=== PATIENT | male | born 1995 | race Caucasian/White ===

== ENCOUNTER 2018-11-27 09:11 | Emergency (ER) | payer OTHER ==
[2018-11-27] MEDS ORDERED: MAG HYDROX/AL HYDROX/SIMETH SUSP 30 ML UDCUP PO ONE (09:38)
[2018-11-27] MEDS ORDERED: LIDOCAINE 2% VISCOUS SOLN 20 ML UDCUP PO ONE (09:38)
[2018-11-27] MEDS ORDERED: METOCLOPRAMIDE HCL ORAL SOLN 10 MG/10 ML UDCUP PO ONE (09:38)
--- NOTE | 2018-11-27 09:40 | ER Document Report ---
ED Medical Screen (RME) - General Chief Complaint: Chest Pain Stated Complaint: CHEST PAIN Time Seen by Provider: 11/27/18 09:38 - HPI Notes: 11/27/18 09:39 Patient is a 23-year-old male with a history of asthma who presents complaining of pain to his epigastrium that radiates up into the upper mid chest that began 3 days ago and has been intermittent. He has felt sob with this, but none currently. Patient states the pain is sharp and did bring him to his knees on one occasion. Patient states that he did feel little "phlegm/spit up in his throat" once as well. Denies drug allergies. Denies any prolonged immobilization, distance travel, recent surgery/trauma, personal cancer history, hormone use, smoking, or previous DVT/PE. Denies WALSH, fever, neck pain, URI, n/v/d, dysuria, back pain, or rash. I have treated and performed a rapid initial assessment of this patient. A comprehensive ED assessment and evaluation of the patient, analysis of test results and completion of medical decision making process will be conducted by additional ED providers. PHYSICAL EXAMINATION: GENERAL: Well-appearing, well-nourished and in no acute distress. A&Ox4. Answers questions appropriately. LUNGS: Breath sounds clear to auscultation bilaterally and equal. No wheezes rales or rhonchi. HEART: Regular rate and rhythm without murmurs, rubs, gallops. ABDOMEN: Soft, nondistended abdomen. No guarding, no rebound. Normal bowel sounds present. No CVA tenderness bilaterally. + mild epigastric tenderness (cannot elicit thorough abd exam w/o bed, however). Extremities: No cyanosis, clubbing, or edema b/l. Amber negative bilaterally. No lower extremity asymmetry. NEUROLOGICAL: Normal speech, normal gait. PSYCH: Normal mood, normal affect. - Related Data Allergies/Adverse Reactions: No Known Allergies Allergy (Verified 11/27/18 09:13) Physical Exam - Vital signs Vitals: Temp Pulse Resp BP Pulse Ox 97.4 F 59 L 16 139/71 H 99 11/27/18 09:20 11/27/18 09:20 11/27/18 09:20 11/27/18 09:20 11/27/18 09:20 Course - Vital Signs Vital signs: Temp Pulse Resp BP Pulse Ox 97.4 F 59 L 16 139/71 H 99 11/27/18 09:20 11/27/18 09:20 11/27/18 09:20 11/27/18 09:20 11/27/18 09:20
[2018-11-27 10:27] LABS: ABSOLUTE BASOPHILS # (AUTO) 0.1 10^3/uL (0.0-0.2); ABSOLUTE EOSINOPHILS # (AUTO) 0.1 10^3/uL (0.0-0.6); ABSOLUTE LYMPHOCYTES (AUTO) 1.5 10^3/uL (0.5-4.7); ABSOLUTE MONOCYTES (AUTO) 0.4 10^3/uL (0.1-1.4); BASOPHILS % (AUTO) 0.9 % (0-2); HEMATOCRIT 47.4 % (37.9-51.0); HEMOGLOBIN 15.7 g/dL (13.5-17.0); LYMPHOCYTES % (AUTO) 25.3 % (13-45); MEAN CORPUSCULAR HEMOGLOBIN 28.6 pg (27.0-33.4); MEAN CORPUSCULAR HGB CONC 33.2 g/dL (32.0-36.0); MEAN CORPUSCULAR VOLUME 86 fl (80-97); MONOCYTES % (AUTO) 6.4 % (3-13); PLATELET COUNT 217 10^3/uL (150-450); RED CELL DISTRIBUTION WIDTH 14.6 % (11.5-14.0); SEGMENTED NEUTROPHILS % (AUTO) 66.4 % (42-78); TOTAL CELLS COUNTED % (AUTO) 100 %; WHITE BLOOD COUNT 6.1 10^3/uL (4.0-10.5)
--- NOTE | 2018-11-27 10:35 | ER Document Report ---
ED GI/ - General Chief Complaint: Chest Pain Stated Complaint: CHEST PAIN Time Seen by Provider: 11/27/18 09:38 Primary Care Provider: SHAKIR,RITU [Primary Care Provider] - Follow up as needed Mode of Arrival: Ambulatory Information source: Patient, Outside Facility Records Notes: 23-year-old male patient comes emergency room complaining of lower substernal epigastric type chest discomfort that started 3 days ago. It occurs 6-8 times per day. It would last up to 20 minutes. It is a sharp pain. Reports it feels as if it starts in the epigastrium and radiates upward. Initially he would notice the pain would go away when he would eat, now eating does not seem to help, but it does not seem to make it worse. He has never had this problem in the past. His underlying medical history is significant only for asthma. There is no diaphoresis, shortness of breath, nausea or vomiting associated with the pain. 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 denies: CAD Patient has suicidal ideation: No Patient has homicidal ideation: No Pulmonary Medical History: Reports: Hx Asthma Surgical Hx: Negative Review of Systems - Review of Systems Constitutional: No symptoms reported EENT: No symptoms reported Cardiovascular: No symptoms reported Respiratory: No symptoms reported Gastrointestinal: No symptoms reported Genitourinary: No symptoms reported Musculoskeletal: No symptoms reported Skin: No symptoms reported Hematologic/Lymphatic: No symptoms reported Neurological/Psychological: No symptoms reported Physical Exam - Vital signs Vitals: Temp Pulse Resp BP Pulse Ox 97.4 F 59 L 16 139/71 H 99 11/27/18 09:20 11/27/18 09:20 11/27/18 09:20 11/27/18 09:20 11/27/18 09:20 - Notes Notes: PHYSICAL EXAMINATION: GENERAL: Well-appearing, well-nourished and in no acute distress. HEAD: Atraumatic, normocephalic. EYES: Pupils equal round and reactive to light, extraocular movements intact, sclera anicteric, conjunctiva are normal. ENT: nares patent, oropharynx clear without exudates. Moist mucous membranes. NECK: Normal range of motion, supple without lymphadenopathy LUNGS: Breath sounds clear to auscultation bilaterally and equal. No wheezes rales or rhonchi. HEART: Regular rate and rhythm without murmurs ABDOMEN: Soft, normoactive bowel sounds. Some reproducible right upper quadrant palpation tenderness. No epigastric tenderness, however the patient had received a GI cocktail prior to the examination. No guarding, no rebound. No masses appreciated. EXTREMITIES: Normal range of motion, no pitting or edema. No cyanosis. NEUROLOGICAL: Cranial nerves grossly intact. Normal speech, normal gait. Normal sensory, motor, and reflex exams. PSYCH: Normal mood, normal affect. SKIN: Warm, Dry, normal turgor, no rashes or lesions noted. Course - Vital Signs Vital signs: Temp Pulse Resp BP Pulse Ox 97.4 F 59 L 16 139/71 H 99 11/27/18 09:20 11/27/18 09:20 11/27/18 09:20 11/27/18 09:20 11/27/18 09:20 - Laboratory Result Diagrams: 11/27/18 10:12 11/27/18 10:12 Laboratory results interpreted by me: 11/27/18 11/27/18 10:12 10:12 RDW 14.6 H Carbon Dioxide 31 H - Diagnostic Test Radiology reviewed: Image reviewed - Chest x-ray is unremarkable. Gallbladder ultrasound shows sludge, no other abnormalities. - EKG Interpretation by Nh EKG shows normal: Sinus rhythm, [place], Intervals, QRS Complexes, ST-T Waves Rate: Normal - 60 Rhythm: NSR Discharge - Discharge Clinical Impression: Epigastric abdominal pain, Sludge in gallbladder Condition: Stable Disposition: HOME, SELF-CARE Additional Instructions: Gallbladder Disease Your evaluation shows evidence of gallbladder disease. The gallbladder is a pouch under the liver which stores bile. Stones, infection, or irritation of the gallbladder cause attacks of pain. Certain foods -- fats in particular -- may provoke attacks. The usual treatment for gallbladder disease is surgical removal of the gallbladder -- called a cholecystectomy. You will be referred to a physician qualified to advise you on the best treatment for your problem. Hospitalization is not necessary. Take clear liquids only until you are painfree. After that, you should stay on a low-fat diet, with frequent SMALL meals. Call the doctor or return at once if you develop severe pain, repeated vomiting, fever, or jaundice (a yellow color in the skin and whites of the eyes). Low-Fat Diet The physician has recommended a low-fat diet. This diet is often used for gallbladder or pancreas problems. Your meals should be high-carbohydrate (potato, apples, noodles, breads, vegetables). Eat fish or skinless chicken (boiled or baked rather than fried) for protein. Beans and peas are good sources of fat-free protein. Soups are usually very low-fat. Don't eat anything fried. Avoid red meats. Avoid most dairy products. Skim milk and non-fat yogurt are OK. Most popular cheeses are very high-fat. Don't add butter or sauces -- use lemon or pepper instead. If you like salads, use one of the new "non-fat" dressings. "Fast Food" is "fat food." There is virtually nothing from a typical fast- food restaurant that you can eat. Fish patties and chicken nuggets are almost always deep-fat fried. "Special Sauces" are mostly fat. * Your gallbladder ultrasound suggest that you have sludge in the gallbladder. This may be the cause of your discomfort. Eat a diet designed for gallbladder disease until you can follow-up with your primary care provider to schedule you for an HIDA scan. RETURN TO THE EMERGENCY ROOM IF ANY NEW OR WORSENING SYMPTOMS. Referrals: [facility] [Primary [facility] Provider] - Follow up as needed
[2018-11-27 10:53] LABS: ALANINE AMINOTRANSFERASE 44 U/L (21-72); ALBUMIN 4.6 g/dL (3.5-5.0); ALKALINE PHOSPHATASE 54 U/L (38-126); ANION GAP 8 (5-19); ASPARTATE AMINO TRANSFERASE 30 U/L (17-59); BILIRUBIN,DIRECT 0.2 mg/dL (0.0-0.4); BILIRUBIN,TOTAL 0.7 mg/dL (0.2-1.3); BLOOD UREA NITROGEN 16 mg/dL (7-20); CALCIUM 9.8 mg/dL (8.4-10.2); CARBON DIOXIDE 31 mmol/L (22-30); CHLORIDE 103 mmol/L (98-107); GLUCOSE 83 mg/dL (75-110); POTASSIUM 4.6 mmol/L (3.6-5.0); TOTAL PROTEIN 7.6 g/dL (6.3-8.2)
--- NOTE | 2018-11-27 11:03 | RADIOLOGY REPORT (SQ) ---
EXAM DESCRIPTION: CHEST 2 VIEWS COMPLETED DATE/TIME: 11/27/2018 10:27 am REASON FOR STUDY: epigastric/cp COMPARISON: None. EXAM PARAMETERS: NUMBER OF VIEWS: two views TECHNIQUE: Digital Frontal and Lateral radiographic views of the chest acquired. RADIATION DOSE: NA LIMITATIONS: none FINDINGS: LUNGS AND PLEURA: No opacities, masses or pneumothorax. No pleural effusion. MEDIASTINUM AND HILAR STRUCTURES: No masses or contour abnormalities. HEART AND VASCULAR STRUCTURES: Heart normal size. No evidence for failure. BONES: No acute findings. HARDWARE: None in the chest. OTHER: No other significant finding. IMPRESSION: NO ACUTE RADIOGRAPHIC FINDING IN THE CHEST. TECHNICAL DOCUMENTATION: JOB ID: [id number] [employer]- All Rights Reserved Reading location - IP/workstation name: [email or web address]
--- NOTE | 2018-11-27 12:30 | RADIOLOGY REPORT (SQ) ---
EXAM DESCRIPTION: U/S ABDOMEN LIMITED W/O DOP COMPLETED DATE/TIME: 11/27/2018 11:42 am REASON FOR STUDY: RUQ abd pain COMPARISON: None. TECHNIQUE: Dynamic and static grayscale images acquired of the abdomen and recorded on PACS. Rondao patricia selected color Doppler and spectral images recorded. LIMITATIONS: None. FINDINGS: PANCREAS: Obscured by bowel gas. LIVER: No masses. Echotexture normal. LIVER VASCULATURE: Normal directional flow of the main portal vein and hepatic veins. GALLBLADDER: No gallstones are seen. There is some sludge. ULTRASOUND-DETECTED DYER'S SIGN: Negative. INTRAHEPATIC DUCTS AND COMMON DUCT: CBD and intrahepatic ducts normal caliber. No filling defects. INFERIOR VENA CAVA: Normal flow. AORTA: No aneurysm. RIGHT KIDNEY: Normal size, 10.1 cm. Normal echogenicity. No solid or suspicious masses. No hydroneph rosis. No calcifications. PERITONEAL AND RIGHT PLEURAL SPACE: No ascites or effusions. OTHER: No other significant findings. IMPRESSION: There is a small amount of gallbladder sludge. No gallstones. No pericholecystic fluid . No wall thickening. TECHNICAL DOCUMENTATION: JOB ID: [id number] [employer]- All Rights Reserved Reading location - IP/workstation name: [email or web address]
[2018-11-27 13:45] VITALS: BP 125/58
--- NOTE | 2018-11-27 14:47 | EKG REPORT ---
SEVERITY:- NORMAL ECG - SINUS RHYTHM : Confirmed by: Faiza Bustamante MD 27-Nov-2018 14:46:08
== END 2018-11-27 13:53 | disposition home or self-care (01) ==
LOC: ER 09:11
DX: K82.8 Other specified diseases of gallbladder (principal); R10.13 Epigastric pain; R07.9 Chest pain, unspecified
CPT/HCPCS: 93005; 99285; 36415; 83690; 85025; 80053; 84484; 71046; 76705; 93010; J3490

== ENCOUNTER 2020-02-28 20:26 | Emergency (ER) | payer OTHER ==
--- NOTE | 2020-02-28 20:49 | ER Document Report ---
ED Medical Screen (RME) - General Chief Complaint: Chest Pain Stated Complaint: CHEST PAIN Time Seen by Provider: 02/28/20 20:34 Primary Care Provider: SHAKIR,RITU [Primary Care Provider] - Follow up as needed Mode of Arrival: Ambulatory Information source: Patient Notes: 24-year-old male presented to ED for chest pain this morning he states he went to work to see if it would get better but a couple hours ago it actually started getting worse. He is on medicine for anxiety. Denies any history of blood pressure cholesterol or any cardiac problems. States he has no history of reflux. He states he had pain when he woke up and then about 9:00 he was able to eat eggs and sausage during the pain. He states the only family member that has any cardiac problems is his grandfather he in his 60s from a [place] but he started having heart problems in his 50s. He states his pain level right now is a 2. Denies any shortness of breath. Patient states he drinks a couple times months but no cigarettes or drugs. I have greeted and performed a rapid initial assessment of this patient. A comprehensive ED assessment and evaluation of the patient, analysis of test results and completion of medical decision making process will be conducted by an additional ED providers. - HPI Onset: This morning Onset/Duration: Constant Quality of pain: Sharp Pain Level: 2 Associated Symptoms: Chest pain, Other - He states he did have some numbness at work in his left side of his neck for about 10 minutes but then it went away.. denies: Shortness of breath Exacerbated by: Other - Being bent over or laying on his side Relieved by: Denies Similar symptoms previously: No Recently seen / treated by doctor: No - Related Data Smoking: Non-smoker Frequency of alcohol use: Social Drug Abuse: None Allergies/Adverse Reactions: No Known Allergies Allergy (Verified 11/27/18 09:13) Past Medical History - Past Medical History Cardiac Medical History: Reports: None Pulmonary Medical History: Reports: Hx Asthma EENT Medical History: Reports: None Neurological Medical History: Reports: None Endocrine Medical History: Reports: None Renal/ Medical History: Reports: None Malignancy Medical History: Reports None GI Medical History: Reports: None Musculoskeltal Medical History: Reports Hx Musculoskeletal Trauma Skin Medical History: Reports None Psychiatric Medical History: Reports: Hx Anxiety Traumatic Medical History: Reports: Hx Fractures - Left wrist twice Infectious Medical History: Reports: None Surgical Hx: Negative Past Surgical History: Reports: None - Immunizations Immunizations up to date: Yes Hx Diphtheria, Pertussis, Tetanus Vaccination: Yes - 2018 Physical Exam - Vital signs Vitals: Temp Pulse Resp BP Pulse Ox 98.0 F 68 16 171/89 H 96 02/28/20 20:30 02/28/20 20:30 02/28/20 20:30 02/28/20 20:30 02/28/20 20:30 Course - Vital Signs Vital signs: Temp Pulse Resp BP Pulse Ox 98.0 F 68 16 171/89 H 96 02/28/20 20:30 02/28/20 20:30 02/28/20 20:30 02/28/20 20:30 02/28/20 20:30 Doctor's Discharge - Discharge [facility]errals: [facility] [[facility]] - Follow up as needed
--- NOTE | 2020-02-28 21:41 | RADIOLOGY REPORT (SQ) ---
EXAM DESCRIPTION: XR CHEST 2 VIEWS COMPLETED DATE/TME: 02/28/2020 20:52 CLINICAL HISTORY: 24 years, Male, chest pain COMPARISON: Chest x-ray 11/27/2018 TECHNIQUE: PA and lateral views FINDINGS: Cardiomediastinal silhouette is not enlarged. No suspicious lung pleural bone abnormalities. Stomach appears distended by what appears to be inspissated fluid. Similar finding was seen on 11/27/2018. IMPRESSION: 1. Negative chest x-ray. 2. Unusual inspissated contents of the stomach. Suggest clinical correlation if further evaluation is necessary.
--- NOTE | 2020-02-28 23:15 | ER Document Report ---
ED General - General Chief Complaint: Chest Pain Stated Complaint: CHEST PAIN Time Seen by Provider: 02/28/20 20:34 Primary Care Provider: LAURYN VOGT MD [ACTIVE STAFF] - Follow up in 1 week RYAN SANDERS MD [ACTIVE STAFF] - Follow up in 1 week [facility] [NO LOCAL MD] - Follow up in 1 week Mode of Arrival: Ambulatory Notes: 24-year-old male with mild intermittent asthma presents with approximately 1 day of constant chest discomfort. Patient says he feels in his left side of his lower chest without radiation or associated symptoms. Patient says he had previous pain that was similar many months ago and had outside work-up including gallbladder studies which were normal and pain resolved without any intervention. Pain is worse when patient moved over or onto his left side. Patient denies any exertional chest pain, cardiac history, hypertension, hyperlipidemia, diabetes, smoking, alcohol or drug abuse, pleuritic chest pain, lower extremity edema or pain, DVT/PE/hypercoagulability history in self or family, cancer history, cough, hemoptysis, recent travel/trauma/surgery/immobi lization, PICA, early satiety, unexplained weight loss - Related Data Allergies/Adverse Reactions: No Known Allergies Allergy (Verified 11/27/18 09:13) Home Medications: albuterol. "steroid for asthma". xanax-generic Past Medical History - General Information source: Patient - Social History Smoking Status: Never Smoker Frequency of alcohol use: Social Drug Abuse: None Family History: Reviewed & Not Pertinent. denies: CAD - Past Medical History Cardiac Medical History: Reports: None Pulmonary Medical History: Reports: Hx Asthma EENT Medical History: Reports: None Neurological Medical History: Reports: None Endocrine Medical History: Reports: None Renal/ Medical History: Reports: None. Denies: Hx Peritoneal Dialysis Malignancy Medical History: Reports None GI Medical History: Reports: None Musculoskeletal Medical History: Reports Hx Musculoskeletal Trauma Skin Medical History: Reports None Psychiatric Medical History: Reports: Hx Anxiety Traumatic Medical History: Reports: Hx Fractures - Left wrist twice Infectious Medical History: Reports: None Surgical Hx: Negative Past Surgical History: Reports: None - Immunizations Immunizations up to date: Yes Hx Diphtheria, Pertussis, Tetanus Vaccination: Yes - 2018 Review of Systems - Review of Systems Notes: REVIEW OF SYSTEMS: CONSTITUTIONAL : Denies fever, chills, or sweats. EENT: Denies recent cold/sinus symptoms, denies throat pain CARDIOVASCULAR: +chest pain, -[place] RESPIRATORY: Denies cough, denies shortness of breath. GASTROINTESTINAL: Denies abdominal pain, nausea/vomiting. GENITOURINARY: Denies difficulty urinating, painful urination. MUSCULOSKELETAL: Denies neck pain, back pain. SKIN: Denies rash or skin lesions. HEMATOLOGIC : Denies easy bruising or bleeding. LYMPHATIC: Denies swollen, enlarged glands. NEUROLOGICAL: Denies headache, denies change in gait. PSYCHIATRIC: Denies anxiety or stress or depression. Physical Exam - Vital signs Vitals: Temp Pulse Resp BP Pulse Ox 98.0 F 68 16 171/89 H 96 02/28/20 20:30 02/28/20 20:30 02/28/20 20:30 02/28/20 20:30 02/28/20 20:30 - Notes Notes: PHYSICAL EXAMINATION: GENERAL: Well-appearing, well-nourished and in no acute distress. HEAD: Atraumatic, normocephalic. EYES: Pupils equal round and appropriate constriction, sclera anicteric, conju nctiva are normal. ENT: nares patent, moist mucous membranes. NECK: Normal range of motion, supple without lymphadenopathy LUNGS: Breath sounds clear to auscultation bilaterally and equal. No wheezes rales or rhonchi. HEART: Regular rate and rhythm without murmurs ABDOMEN: Soft, nontender, no guarding, no masses, no CVAT EXTREMITIES: Normal range of motion, no pitting or edema. No cyanosis. NEUROLOGICAL: Awake, alert, conversing appropriately, moves all extremities spontaneously. PSYCH: Normal mood, normal affect. SKIN: Warm, Dry, normal turgor, no rashes or lesions noted. Course - Re-evaluation Re-evalutation: 02/28/20 23:52 24-year-old male presents with chest pain with symptoms atypical for ACS, will rule out with EKG and single troponin. Rule out inborn conduction disease, HCM, WPW, but very low pretest probability. Rule out pneumothorax with chest x-ray. PERC negative and low pretest probability. No risk factors for dissection, pericardial effusion, Boerhaave syndrome, and presentation not consistent with these diagnoses. EKG, troponin, chest x-ray, likely DC with PCP cardiology follow-up and return precautions. 02/29/20 05:04 Patient with inspissated stomach contents on x-ray which is also seen on previous chest x-ray but now more prominent. Likely be sore but rule out alternate etiologies including mass. Discussed this with patient who will follow up with gastroenterology regarding this finding. Denies any abnormal ingestions, and has no symptoms of gastric outlet obstruction. Patient found to have elevated CK on work-up, endorses lifting weights 2 days ago and the day b efore that. Patient denies any pain in his muscles, change in his urine output or color. Gave 2 L of LR and rechecked CK which showed downtrending. Given that patient without any markers for severe rhabdo with normal bicarb, normal calcium, normal creatinine, and low age, and asymptomatic patient appropriate to trial oral hydration at home to resolve CK. Patient ordered for third liter of LR before discharge, but patient refused this. Patient will follow up with primary doctor, GI, and cardiology at the [facility]. Gave patient extensive return to ED precautions which he demonstrated understanding of. - Vital Signs Vital signs: Temp Pulse Resp BP Pulse Ox 98.0 F 68 23 H 144/77 H 100 02/28/20 20:30 02/28/20 20:30 02/29/20 05:03 02/29/20 05:03 02/29/20 05:03 - Laboratory Result Diagrams: 02/28/20 23:14 02/28/20 23:14 Laboratory results interpreted by me: 02/28/20 02/28/20 02/29/20 23:14 23:14 03:18 RDW 14.8 H BUN 22 H Creatine Kinase 1188 H 935 H - EKG Interpretation by Me Additional EKG results interpreted by me: 02/29/20 06:16 Sinus rhythm, no significant ST elevations or depressions, no significant T wave abnormalities, QTc 382 Discharge - Discharge Clinical Impression: Mass of stomach, Dehydration Rhabdomyolysis Qualifiers: Rhabdomyolysis type: non-traumatic Qualified Code(s): M62.82 - Rhabdomyolysis Chest pain Qualifiers: Chest pain type: unspecified Qualified Code(s): R07.9 - Chest pain, unspecified Disposition: HOME, SELF-CARE Additional Instructions: You have been treated for mild rhabdomyolysis which is breakdown of skeletal muscle. It is extremely important that you follow-up closely with a primary doctor to make sure that this has resolved as rhabdomyolysis can cause kidney failure and . Increased the amount of fluids that you are not drinking by 2 L/day for the next few days. You were also seen for chest pain. You were found to be mildly dehydrated and to have an unknown mass in your stomach that could be a bezoar but could also be something dangerous such as stomach cancer. It is extremely important that you follow-up with a senior loan processor and a behavioral health consultant. If you have any decrease in your urine output, dark urine, brown urine, dizziness, weakness, muscle pain, fainting, worsening chest pain, difficulty breathing, confusion, vomiting and inability to keep down liquids by mouth, inability to pass stool or gas, or any other worsening or alarming symptoms return to the emergency department immediately. Referrals: RYAN SANDERS MD [ACTIVE STAFF] - Follow up in 1 week LAURYN VOGT MD [ACTIVE STAFF] - Follow up in 1 week [facility] [NO LOCAL MD] - Follow up in 1 week
[2020-02-28 23:24] LABS: ABSOLUTE BASOPHILS # (AUTO) 0.1 10^3/uL (0.0-0.2); ABSOLUTE EOSINOPHILS # (AUTO) 0.2 10^3/uL (0.0-0.6); ABSOLUTE LYMPHOCYTES (AUTO) 3.4 10^3/uL (0.5-4.7); ABSOLUTE MONOCYTES (AUTO) 0.9 10^3/uL (0.1-1.4); ABSOLUTE NEUT (AUTO) 4.6 10^3/uL (1.7-8.2); BASOPHILS % (AUTO) 1.3 % (0-2); EOSINOPHILS % (AUTO) 1.9 % (0-6); HEMATOCRIT 44.3 % (37.9-51.0); HEMOGLOBIN 15.4 g/dL (13.5-17.0); LYMPHOCYTES % (AUTO) 36.8 % (13-45); MEAN CORPUSCULAR HEMOGLOBIN 29.4 pg (27.0-33.4); MEAN CORPUSCULAR HGB CONC 34.7 g/dL (32.0-36.0); MEAN CORPUSCULAR VOLUME 85 fl (80-97); MONOCYTES % (AUTO) 9.5 % (3-13); PLATELET COUNT 244 10^3/uL (150-450); RED BLOOD COUNT 5.23 10^6/uL (4.35-5.55); RED CELL DISTRIBUTION WIDTH 14.8 % (11.5-14.0); SEGMENTED NEUTROPHILS % (AUTO) 50.5 % (42-78); TOTAL CELLS COUNTED % (AUTO) 100 %; WHITE BLOOD COUNT 9.1 10^3/uL (4.0-10.5)
[2020-02-28 23:41] LABS: ALBUMIN 4.6 g/dL (3.5-5.0); ALKALINE PHOSPHATASE 50 U/L (38-126); ANION GAP 10 (5-19); ASPARTATE AMINO TRANSFERASE 39 U/L (17-59); BILIRUBIN,DIRECT 0.1 mg/dL (0.0-0.4); BILIRUBIN,TOTAL 0.4 mg/dL (0.2-1.3); BLOOD UREA NITROGEN 22 mg/dL (7-20); CALCIUM 9.8 mg/dL (8.4-10.2); CARBON DIOXIDE 27 mmol/L (22-30); CHLORIDE 104 mmol/L (98-107); CREATINE KINASE 1188 U/L (55-170); GLUCOSE 93 mg/dL (75-110); POTASSIUM 3.8 mmol/L (3.6-5.0); TOTAL PROTEIN 7.7 g/dL (6.3-8.2)
[2020-02-29] MEDS: RINGERS SOLUTION,LACTATED 1,000 ML IV PRN ×2 (00:15→01:06)
[2020-02-29] MEDS ORDERED: RINGERS SOLUTION,LACTATED 1,000 ML IV ONE (04:51)
[2020-02-29 05:10] VITALS: BP 144/77
--- NOTE | 2020-02-29 08:48 | EKG REPORT ---
SEVERITY:- NORMAL ECG - SINUS RHYTHM : Confirmed by: Luis Delgadillo MD 29-Feb-2020 08:47:06
== END 2020-02-29 05:18 | disposition home or self-care (01) ==
LOC: ER 20:26
DX: R07.9 Chest pain, unspecified (principal); M62.82 Rhabdomyolysis; E86.0 Dehydration; R19.00 Intra-abdominal and pelvic swelling, mass and lump, unspecified site; J45.20 Mild intermittent asthma, uncomplicated; F41.9 Anxiety disorder, unspecified; Z79.899 Other long term (current) drug therapy
CPT/HCPCS: 93005; 99285; 96365; 36415; 82550; 85025; 80053; 84484; 71046; 93010; J7120

== ENCOUNTER 2020-03-22 13:16 | Emergency (ER) | payer OTHER ==
--- NOTE | 2020-03-22 13:36 | ER Document Report ---
ED Medical Screen (RME) - General Chief Complaint: Fainting Stated Complaint: FALL,SYNCOPE Time Seen by Provider: 03/22/20 13:27 Notes: Patient is a 24-year-old male presents emergency department after syncopal episode. Patient was running around with his son and ended up, "passing out." Patient also reports pain to the left side of his chest that radiates eights up to his left shoulder. He has been told that he has a "mass" to his left stomach/pectoral area. Patient states that he had a CT of the abdomen 4 days ago, but has not received the results. Exam: S1, S2. Alert and oriented. I have greeted and performed a rapid initial assessment of this patient. A comprehensive ED assessment and evaluation of the patient, analysis of test results and completion of medical decision making process will be conducted by an additional ED providers. - Related Data Allergies/Adverse Reactions: No Known Allergies Allergy (Verified 03/22/20 13:24) Past Medical History - Social History Chew tobacco use (# tins/day): No Frequency of alcohol use: None Drug Abuse: None Pulmonary Medical History: Reports: Hx Asthma Renal/ Medical History: Denies: Hx Peritoneal Dialysis Musculoskeltal Medical History: Reports Hx Musculoskeletal Trauma Psychiatric Medical History: Reports: Hx Anxiety Traumatic Medical History: Reports: Hx Fractures - Left wrist twice - Immunizations Immunizations up to date: Yes Hx Diphtheria, Pertussis, Tetanus Vaccination: Yes - 2017 Physical Exam - Vital signs Vitals: Temp Pulse Resp BP Pulse Ox 98.3 F 90 16 142/78 H 100 03/22/20 13:22 03/22/20 13:22 03/22/20 13:22 03/22/20 13:22 03/22/20 13:22 Course - Vital Signs Vital signs: Temp Pulse Resp BP Pulse Ox 98.3 F 90 16 142/78 H 100 03/22/20 13:22 03/22/20 13:22 03/22/20 13:22 03/22/20 13:22 03/22/20 13:22
[2020-03-22 14:20] LABS: ABSOLUTE BASOPHILS # (AUTO) 0.1 10^3/uL (0.0-0.2); ABSOLUTE EOSINOPHILS # (AUTO) 0.1 10^3/uL (0.0-0.6); ABSOLUTE LYMPHOCYTES (AUTO) 2.5 10^3/uL (0.5-4.7); ABSOLUTE MONOCYTES (AUTO) 0.6 10^3/uL (0.1-1.4); ABSOLUTE NEUT (AUTO) 5.3 10^3/uL (1.7-8.2); EOSINOPHILS % (AUTO) 1.1 % (0-6); HEMATOCRIT 49.2 % (37.9-51.0); HEMOGLOBIN 16.6 g/dL (13.5-17.0); LYMPHOCYTES % (AUTO) 28.8 % (13-45); MEAN CORPUSCULAR HEMOGLOBIN 28.5 pg (27.0-33.4); MEAN CORPUSCULAR HGB CONC 33.7 g/dL (32.0-36.0); MEAN CORPUSCULAR VOLUME 85 fl (80-97); MONOCYTES % (AUTO) 6.7 % (3-13); PLATELET COUNT 284 10^3/uL (150-450); RED BLOOD COUNT 5.82 10^6/uL (4.35-5.55); RED CELL DISTRIBUTION WIDTH 14.4 % (11.5-14.0); SEGMENTED NEUTROPHILS % (AUTO) 62.4 % (42-78); TOTAL CELLS COUNTED % (AUTO) 100 %; WHITE BLOOD COUNT 8.6 10^3/uL (4.0-10.5)
[2020-03-22 14:36] LABS: ALKALINE PHOSPHATASE 57 U/L (38-126); ANION GAP 14 (5-19); ASPARTATE AMINO TRANSFERASE 35 U/L (17-59); BILIRUBIN,DIRECT 0.2 mg/dL (0.0-0.4); BILIRUBIN,TOTAL 0.7 mg/dL (0.2-1.3); BLOOD UREA NITROGEN 17 mg/dL (7-20); CALCIUM 10.2 mg/dL (8.4-10.2); CARBON DIOXIDE 23 mmol/L (22-30); CHLORIDE 102 mmol/L (98-107); CREATINE KINASE 139 U/L (55-170); GLUCOSE 109 mg/dL (75-110); POTASSIUM 4.5 mmol/L (3.6-5.0); TOTAL PROTEIN 8.3 g/dL (6.3-8.2)
--- NOTE | 2020-03-22 14:37 | RADIOLOGY REPORT (SQ) ---
EXAM DESCRIPTION: CHEST 2 VIEWS IMAGES COMPLETED DATE/TIME: 03/22/2020 2:01 pm REASON FOR STUDY: syncope; hx of mass in Left lower chest? COMPARISON: 02/28/2020. EXAM PARAMETERS: NUMBER OF VIEWS: two views TECHNIQUE: Digital Frontal and Lateral radiographic views of the chest acquired. RADIATION DOSE: NA LIMITATIONS: none FINDINGS: LUNGS AND PLEURA: No opacities, masses or pneumothorax. No pleural effusion. MEDIASTINUM AND HILAR STRUCTURES: No masses or contour abnormalities. HEART AND VASCULAR STRUCTURES: Heart normal size. No evidence for failure. BONES: No acute findings. HARDWARE: None in the chest. OTHER: No other significant finding. IMPRESSION: NO ACUTE RADIOGRAPHIC FINDING IN THE CHEST. TECHNICAL DOCUMENTATION: JOB ID: [id number] 2010 [employer]- All Rights Reserved Reading location - IP/workstation name: [email or web address]
--- NOTE | 2020-03-22 15:52 | ER Document Report ---
ED General - General Chief Complaint: Fainting Stated Complaint: FALL,SYNCOPE Time Seen by Provider: 03/22/20 13:27 Primary Care Provider: RITU SCHILLING [Primary Care Provider] - Follow up as needed Notes: HPI: 24-year-old male who states he has had some intermittent epigastric abdominal discomfort for around 1 year. Is recently moved over the last few months to the left lower ribs. He denies any cough or shortness of breath. He states it has been intermittent. He has been seen here recently for this. They did an x-ray which showed some possible substance in the stomach that was not definitively identified. Patient was supposed to follow-up with an endoscopy. Patient denies any abdominal pain any longer. Patient was in the house today and felt exquisite pain to the left lateral lower chest wall. This caused him to have a syncopal episode. No history of syncope. No obvious incontinence or seizure activity noted. No fevers, cough, or vomiting. Patient denies any pain at this time. Patient also had an elevated total CK on last visit that down trended on repeat labs. Patient also states of the last 2 months he has had a "swelling" underneath his left breast anterior to the left ribs ROS: See HPI All other review of systems reviewed and otherwise negative Reviewed vital signs and nursing note as charted by RN. PHYSICAL EXAM: CONSTITUTIONAL: Alert and oriented and responds appropriately to questions. Well-appearing; well-nourished HEAD: Normocephalic; atraumatic EYES: Sclerae non-icteric ENT: Normal nose; no rhinorrhea; moist mucous membranes; pharynx without lesions noted NECK: Supple without meningismus; non-tender; no cervical lymphadenopathy, no masses CARD: Regular rate and rhythm; no murmurs; symmetric distal pulses RESP: Normal chest excursion without splinting or tachypnea; breath sounds clear and equal bilaterally; patient does have a nonfluctuant nonindurated nonerythematous region just underneath his left breast on the lower anterior ribs ABD/GI: Normal bowel sounds; non-distended; soft, non-tender currently to deep palpation of all 4 quadrants of the abdomen BACK: The back appears normal and is non-tender to palpation EXT: Normal ROM in all joints; non-tender to palpation; no edema SKIN: No acute lesions noted NEURO: CN 2-12 intact; 5/5 bilateral upper and lower extremity strength with sensation intact to light touch PSYCH: The patient's mood and manner are appropriate. Grooming and personal hygiene are appropriate. - Related Data Allergies/Adverse Reactions: No Known Allergies Allergy (Verified 03/22/20 13:24) Past Medical History - Social History Smoking Status: Never Smoker Chew tobacco use (# tins/day): No Frequency of alcohol use: None Drug Abuse: None Family History: Reviewed & Not Pertinent. denies: CAD Pulmonary Medical History: Reports: Hx Asthma Renal/ Medical History: Denies: Hx Peritoneal Dialysis Musculoskeletal Medical History: Reports Hx Musculoskeletal Trauma Psychiatric Medical History: Reports: Hx Anxiety Traumatic Medical History: Reports: Hx Fractures - Left wrist twice - Immunizations Immunizations up to date: Yes Hx Diphtheria, Pertussis, Tetanus Vaccination: Yes - 2017 Physical Exam - Vital signs Vitals: Temp Pulse Resp BP Pulse Ox 98.3 F 90 16 142/78 H 100 03/22/20 13:22 03/22/20 13:22 03/22/20 13:22 03/22/20 13:22 03/22/20 13:22 Course - Re-evaluation Re-evalutation: Given the above history and physical with the patient symptomatology today, we will obtain a CT scan of the chest abdomen and pelvis to fully evaluate the patient's lower rib/upper abdominal discomfort with the unusual x-ray report previously noted. Patient has no shortness of breath, calf pain or leg swelling, is not tachycardic or hypoxic, leading me to believe PE to be unlikely. 03/22/20 15:49 Initial labs as recorded. EKG shows a rate of 64, normal sinus rhythm, normal axis, no obvious ST elevation or depression. 03/22/20 17:24 Imaging and labs as recorded. EKG as recorded. Patient still denies any and all pain at this time. No pain to repeat abdominal examination. Patient states he has had an endoscopy showing some gastritis with a biopsy. The biopsy results are not back yet. Patient was not put on an acid medication. Given the above history and physical and extensive work-up, I believe it is reasonable to discharge the patient home at this time with strict return precautions and starting the patient on Nexium. Patient and are in agreement with this plan. Strict return precautions have been explained directly. - Vital Signs Vital signs: Temp Pulse Resp BP Pulse Ox 98.3 F 90 16 142/78 H 99 03/22/20 13:22 03/22/20 13:22 03/22/20 13:22 03/22/20 13:22 03/22/20 14:32 - Laboratory Result Diagrams: 03/22/20 13:41 03/22/20 13:41 Laboratory results interpreted by me: 03/22/20 03/22/20 13:41 13:41 RBC 5.82 H RDW 14.4 H Total Protein 8.3 H Discharge - Discharge Clinical Impression: Atypical chest pain, Syncope and collapse Condition: Good Disposition: HOME, SELF-CARE Additional Instructions: Come back immediately for any return or worsening pain, change in location or quality of pain, fevers, persistent vomiting, or any other acute problems. Please start the Nexium as prescribed and follow-up with your primary care physician for further assessment and treatment. Prescriptions: Esomeprazole Magnesium [Nexium 24Hr] 20 mg PO DAILY #30 tablet. [facility]errals: [facility] [[facility]] - Follow up as needed
--- NOTE | 2020-03-22 16:56 | RADIOLOGY REPORT (SQ) ---
EXAM DESCRIPTION: CT CHEST WITH IMAGES COMPLETED DATE/TIME: 03/22/2020 4:12 pm REASON FOR STUDY: 12; left-sided lower chest/upper abdominal discomf COMPARISON: None. TECHNIQUE: CT scan of the chest performed using helical scanning technique with dynamic intravenous contrast injection. Images reviewed with lung, soft tissue and bone windows. Reconstructed coronal and sagittal MPR and MIP images reviewed. All images stored on PACS. All CT scanners at this facility use dose modulation, iterative reconstruction, and/or weight based d osing when appropriate to reduce radiation dose to as low as reasonably achievable (ALARA). [facility]: Dose Right [facility]: CareDose [facility]: Dose Right [facility]: Teradose 4D [facility]: AppUpper - ASO CONTRAST TYPE AND DOSE: contrast/concentration: Isovue 350.00 mmol/ml; Total Contrast Delivered: 100 .0 ml; Total Saline Delivered: 72.0 ml RENAL FUNCTION: None required. The patient is less than 50 years old. RADIATION DOSE: . LIMITATIONS: None. FINDINGS: LUNGS AND PLEURA: No opacities, nodules, masses. No pneumothorax. No effusions. HILAR AND MEDIASTINAL STRUCTURES: No identified masses or abnormal nodes. HEART AND VASCULAR STRUCTURES: No aneurysm or dissection. No central pulmonary emboli. No pericardi al effusion. HARDWARE: None in the chest. UPPER ABDOMEN: No significant findings. Limited exam. THYROID AND OTHER SOFT TISSUES: No masses. No adenopathy. BONES: No significant finding. OTHER: No other significant finding. IMPRESSION: NORMAL CT OF THE CHEST WITH IV CONTRAST. TECHNICAL DOCUMENTATION: JOB ID: [id number] Quality ID # [id number]: Final reports with documentation of one or more dose reduction techniques (e.g., Au tomated exposure control, adjustment of the mA and/or kV according to patient size, use of iterative reconstruction technique) 2010 [employer]- All Rights Reserved Reading location - IP/workstation name: [email or web address]
--- NOTE | 2020-03-22 16:59 | RADIOLOGY REPORT (SQ) ---
EXAM DESCRIPTION: CT ABD/PELVIS WITH IV ONLY IMAGES COMPLETED DATE/TIME: 03/22/2020 4:12 pm REASON FOR STUDY: 12; left-sided lower chest/upper abdominal discomf COMPARISON: None. TECHNIQUE: CT scan of the abdomen and pelvis performed using helical scanning technique with dynamic intravenous contrast injection. No oral contrast. Images reviewed with lung, soft tissue, and bone windows. Reconstructed coronal and sagittal MPR images reviewed. Delayed images for evaluation of the urinary system also acquired. All images stored on PACS. All CT scanners at this facility use dose modulation, iterative reconstruction, and/or weight based d osing when appropriate to reduce radiation dose to as low as reasonably achievable (ALARA). [facility]: Dose Right [facility]: CareDose [facility]: Dose Right [facility]: Teradose 4D [facility]: [employer] CONTRAST TYPE AND DOSE: 100 mL Omnipaque 350- low osmolar. RENAL FUNCTION: None required. The patient is less than 50 years old. RADIATION DOSE: CT Rad equipment meets quality standard of care and radiation dose reduction techniq ues were employed. CTDIvol: 23.8 - 28.2 mGy. DLP: 4128 mGy-cm.. LIMITATIONS: None. FINDINGS: LOWER CHEST: No significant findings. No nodules or infiltrates. LIVER: Normal size. Diffuse fatty infiltration. No masses. No dilated ducts. SPLEEN: Normal size. No focal lesions. PANCREAS: No masses. No significant calcifications. No adjacent inflammation or peripancreatic fluid collections. Pancreatic duct not dilated. GALLBLADDER: No identified stones by CT criteria. No inflammatory changes to suggest cholecystitis. ADRENAL GLANDS: No significant masses or asymmetry. RIGHT KIDNEY AND URETER: No solid masses. No significant calcifications. No hydronephrosis or hyd roureter. LEFT KIDNEY AND URETER: No solid masses. No significant calcifications. No hydronephrosis or hydr oureter. AORTA AND VESSELS: No aneurysm. No dissection. Renal arteries, SMA, celiac without stenosis. RETROPERITONEUM: No retroperitoneal adenopathy, hemorrhage or masses. BOWEL AND PERITONEAL CAVITY: No masses or inflammatory changes. No free fluid or peritoneal masses. APPENDIX: Normal. PELVIS: No mass. No free fluid. Normal bladder. ABDOMINAL WALL: No masses. No hernias. BONES: No significant or acute findings. OTHER: No other significant finding. IMPRESSION: DIFFUSE FATTY INFILTRATION OF THE LIVER. NO OTHER SIGNIFICANT OR ACUTE FINDING IN THE A BDOMEN OR PELVIS ON CT SCAN WITH IV CONTRAST. TECHNICAL DOCUMENTATION: JOB ID: [id number] Quality ID # [id number]: Final reports with documentation of one or more dose reduction techniques (e.g., Au tomated exposure control, adjustment of the mA and/or kV according to patient size, use of iterative reconstruction technique) 2010 [employer]- All Rights Reserved Reading location - IP/workstation name: [email or web address]
[2020-03-22] MEDS ORDERED: LIDOCAINE 2% VISCOUS SOLN 15 ML UDCUP PO ONE (17:25)
[2020-03-22] MEDS ORDERED: METOCLOPRAMIDE HCL ORAL SOLN 10 MG/10 ML UDCUP PO ONE (17:25)
[2020-03-22] MEDS ORDERED: MAG HYDROX/AL HYDROX/SIMETH SUSP 30 ML UDCUP PO ONE (17:25)
[2020-03-22 17:40] VITALS: BP 124/69
--- NOTE | 2020-03-22 19:44 | EKG REPORT ---
SEVERITY:- NORMAL ECG - SINUS RHYTHM : Confirmed by: Faiza Bustamante MD 22-Mar-2020 19:43:52
== END 2020-03-22 17:47 | disposition home or self-care (01) ==
LOC: ER 13:16
DX: R55 Syncope and collapse (principal); R07.89 Other chest pain; R10.13 Epigastric pain; M25.512 Pain in left shoulder
CPT/HCPCS: 93005; 99285; 36415; 82550; 85025; 80053; 84484; 71046; 71260; 74177; 93010; J3490